=== PATIENT | female | born 1975 | race Caucasian/White ===

== ENCOUNTER 2024-09-29 20:41 | Emergency (ER) | payer SELFPAY ==
[2024-09-29] VITALS (16 sets, daily range): BP systolic 114–172; BP diastolic 88–127; PULSE 84–115; RESP 11–25; TEMP 36.7; O2SAT 95–99
--- NOTE | ~2024-09-29 | XR_ITS ---
EXAMINATION: XR chest 2V Exam Date/Time: 09/29/2024 21:39 CDT HISTORY: productive cough Comparison: None. RESULT: Lines, tubes, and devices: Cholecystectomy clips. Lungs and pleura: Minimal linear scar in the left lower lung, mild left hemidiaphragm elevation. Fla ttening of the hemidiaphragms in the lateral view, as can be seen with emphysematous change Lungs oth erwise clear. Cardiomediastinal silhouette: Unremarkable. Other: No acute osseous or upper abdominal finding. IMPRESSION: No acute cardiopulmonary process. Reviewed, dictated and finalized at location K.
--- NOTE | 2024-09-29 20:54 | ECG_ITS ---
Test Date: 2024-09-29 21:02:55 Measurements Intervals [place] Rate: 99 P: 67 UT: 150 QRS: 16 QRSD: 82 T: 5 QT: 346 QTc: 444 Interpretive Statements SINUS RHYTHM MINIMAL ST DEPRESSION [0.025+ mV ST DEPRESSION] No previous ECG available for comparison Electronically Signed On 09-30-2024 22:30:24 CDT by Cyrus Jimenez M.D.
[2024-09-29] MEDS: diazePAM (*CRX) 5 MG TABLET PO (21:42)
[2024-09-29 22:42] LABS: Hematocrit 40.0 % (37.0-47.0); Hemoglobin 13.0 g/dL (12.0-15.0); Immature Granulocyte Percent A 0.2 % (0-0.5); Lymphocytes Absolute Auto 3.21 K/mm3 (0.9-3.2); Mean Corpuscular HGB Conc 32.5 g/dl (32-36); Mean Corpuscular Hemoglobin 31.0 pg (26-34); Mean Corpuscular Volume 95.2 fl (80-100); Nucleated Red Blood Cells Absolute Auto 0.000 K/mm3 (0.0-0.012); Nucleated Red Blood Cells Perc 0.0 % (0.0-0.2); Platelet Count Result 259 k/mm3 (150-375); Red Blood Count 4.20 M/mm3 (4.2-5.4); White Blood Count 8.8 K/mm3 (4.5-10.0)
[2024-09-29 22:51] LABS: Alanine Aminotransferase 17 U/L (6-35); Albumin Level 4.0 g/dL (3.5-5.1); Alkaline Phosphatase 69 U/L (38-126); Anion Gap 7 mmol/L (4-12); Aspartate Amino Transferase 25 U/L (14-36); Bilirubin,Total 0.2 mg/dL (0.2-1.3); Blood Urea Nitrogen 16 mg/dL (7-17); Calcium 9.0 mg/dL (8.4-10.2); Carbon Dioxide 25 mmol/L (22-30); Chloride 106 mmol/L (98-107); Estimated CRCL calculation 85 ml/min; Estimated Glomerular Filt Rate > 60; Glucose 106 mg/dL (65-110); Potassium 4.3 mmol/L (3.4-5.0); Sodium 138 mmol/L (137-145); Total Protein 7.5 g/dL (6.3-8.2)
[2024-09-29 23:03] LABS: Troponin I < 0.012 ng/mL (0.000-0.034)
[2024-09-29] MEDS: LIDOCAINE 5% PATCH 1 PATCH TRANSDERM (23:57)
--- NOTE | 2024-09-29 23:57 | ED_ITS ---
HPI - Back Pain/Injury General Chief Complaint: Back Pain/Injury Stated Complaint: back pain, sob Time Seen by Provider: 09/29/24 21:21 History of Present Illness HPI Narrative: Patient presents with left-sided upper back spasms ongoing for the last few days, she had a recent cough, the back spasms happen every so often when they happen they are so sharp and severe they take her breath away. No recent trauma. Related Data Allergies Allergy/AdvReac Type Severity Reaction Status Date / Time No Known Allergies Allergy Verified 09/29/24 21:45 Review of Systems 2 Review of Systems: All systems reviewed & are unremarkable except as noted in HPI and below Exam 2 Narrative: EXAMINATION OF ORGAN SYSTEMS/BODY AREAS: Constitutional: Vital signs per nursing GENERAL:[No acute distress, non-toxic appearing.] HEAD: Normal with no signs of head trauma. EYES: EOMI, conjunctiva normal ENT: Hearing grossly intact LUNGS: Nonlabored breathing. HEART: [Regular rate and rhythm] ABD: [Soft], [nontender to palpation] EXT: Normal range of motion SKIN: [No rashes or lesions.] NEURO: [Alert and oriented x 3. No gross focal sensory or strength deficits.] PSYCH: Normal affect Course Vital Signs Vital signs: Vital Signs Temperature 98.1 F 09/29/24 20:50 Pulse Rate 115 H 09/29/24 20:50 Respiratory Rate 22 H 09/29/24 20:50 Blood Pressure 155/108 H 09/29/24 20:50 Pulse Oximetry 97 09/29/24 20:50 Oxygen Delivery Room Air 09/29/24 20:50 Temperature 98.1 F 09/29/24 20:50 Pulse Rate 93 09/30/24 00:04 Respiratory Rate 18 09/30/24 00:04 Blood Pressure 129/89 09/30/24 00:04 Pulse Oximetry 98 09/30/24 00:04 Oxygen Delivery Room Air 09/29/24 21:43 MDM - Back Pain/Injury MDM Narrative Medical decision making narrative: 48F p/w his back spasm on the left side over last few days along with a productive cough, on exam she does appear uncomfortable, no reproducible tenderness, denies any recent trauma, given the location of the symptoms I did obtain cardiac workup as well as D-dimer, thankfully all labs within acceptable limits. Chest x-ray does not show obvious pneumonia on my independent interpretation. Lungs are clear to auscultation. EKG - 12-Lead: Performed at 2102. Interpreted by me. [Sinus rhythm]. Rate 99. [Normal] axis. OK-interval [normal]. QRS duration [normal]. QTc [normal]. Very mild possible ST depressions though this is hard to ascertain given the wandering baseline. Heart score is 2. On re-evaluation, patient feels much better and is requesting discharge. I will provide prescriptions for pain medication, she is urged to return to the ER if her symptoms return or worsen. Patient is agreeable to this plan. Lab Data 09/29/24 22:27 09/29/24 22:27 Labs: Lab Results 09/29/24 Range/Units 22:27 WBC 8.8 (4.5-10.0) K/mm3 RBC 4.20 (4.2-5.4) M/mm3 Hgb 13.0 (12.0-15.0) g/dL Hct 40.0 (37.0-47.0) % MCV 95.2 (80-100) fl MCH 31.0 (26-34) pg MCHC 32.5 (32-36) g/dl RDW 15.2 H (11.5-14.5) % Plt Count 259 (150-375) k/mm3 MPV 9.6 (7.4-10.4) fl Immature Gran % (Auto) 0.2 (0-0.5) % Neut % (Auto) 50.2 (45.5-73.1) % Lymph % (Auto) 36.4 (18.3-44.2) % [place] % (Auto) 8.4 (2.6-8.5) % Eos % (Auto) 4.5 H (0-4.4) % Baso % (Auto) 0.3 (0.2-1.2) % Lymph # (Auto) 3.21 H (0.9-3.2) K/mm3 [place] # (Auto) 0.7 H (0.1-0.6) K/mm3 Eos # (Auto) 0.4 H (0-0.3) K/mm3 Baso # (Auto) 0.0 (0.0-0.1) K/mm3 Abs Immat Gran (auto) 0.02 (0.00-0.031) K/mm3 Absolute Neuts (auto) 4.4 (1.3-6.7) K/mm3 Absolute Nucleated RBC 0.000 (0.0-0.012) K/mm3 Nucleated RBC % 0.0 (0.0-0.2) % D-Dimer < 0.27 (<0.48) ug/mL Sodium 138 (137-145) mmol/L Potassium 4.3 (3.4-5.0) mmol/L Chloride 106 (98-107) mmol/L Carbon Dioxide 25 (22-30) mmol/L Anion Gap 7 (4-12) mmol/L BUN 16 (7-17) mg/dL Creatinine 0.85 (0.7-1.0) mg/dL Estim Creat Clear Calc 85 ml/min Estimated GFR > 60 (59 - ) Glucose 106 (65-110) mg/dL Calcium 9.0 (8.4-10.2) mg/dL Total Bilirubin 0.2 (0.2-1.3) mg/dL AST 25 (14-36) U/L ALT 17 (6-35) U/L Alkaline Phosphatase 69 (38-126) U/L Troponin I < 0.012 (0.000-0.034) ng/mL Total Protein 7.5 (6.3-8.2) g/dL Albumin 4.0 (3.5-5.1) g/dL Discharge Plan Discharge Clinical Impression: Back muscle spasm Patient Disposition: Home Condition: Stable Instructions: Muscle Spasm (ED) Additional Instructions: Please follow up with your doctor; you can always return for any further issues. Patient Language: Croatian Prescriptions: New acetaminophen [Tylenol Extra Strength] 500 mg tablet 1,000 mg PO Q6H PRN (Reason: pain) Qty: 50 0RF methocarbamol 750 mg tablet 750 mg PO TID PRN (Reason: muscle spasm) Qty: 30 0RF lidocaine 5 % adhesive patch,medicated 1 patch topical DAILY Qty: 15 0RF Rx Instructions: leave on most painful area for up to 12 hrs ibuprofen 600 mg tablet 600 mg PO TID PRN (Reason: fever or pain) Qty: 30 0RF Follow-up/Referrals: PHYSICIAN,GYMNASTIC TEACHER [Primary Care Provider] - Ezra Villa MD [Physician] - 2 Days
[2024-09-29] MEDS: KETOROLAC 30 MG/ML VIAL (*BKC) 15 MG IM (23:58)
[2024-09-30 00:04] VITALS: BP 129/89; PULSE 93; RESP 18; O2SAT 98
== END 2024-09-30 00:06 | disposition home or self-care (01) ==
PROVIDERS: Emergency Provider Emergency Medicine
DX: M62.830 Muscle spasm of back (principal)
CPT/HCPCS: 36415; 71046; 80053; 84484; 85025; 85380; 93005; 96372; 99284; A9270; J1885